=== PATIENT | female | born 1975 | race Two or more races ===

== ENCOUNTER → 2024-03-28 10:29 | Outpatient (REF) | payer OTHER, SELFPAY ==
[2024-03-28 16:33] LABS: Mumps Virus IgG Positive; Rubeola (Measles) IgG Positive; Varicella Zoster IgG (VZV) Positive
[2024-03-28 20:23] LABS: Rubella Positive
[2024-03-28 23:12] LABS: Hepatitis B Surface Antibody Indeterminate
== END ==
LOC: OHS 10:29
PROVIDERS: ATTENDING PHYSICIAN Nurse Practitioner
DX: Z23 Encounter for immunization (principal)
CPT/HCPCS: 36415; 86706; 86735; 86762; 86765; 86787

== ENCOUNTER → 2024-06-19 14:08 | Outpatient (REF) | payer OTHER, SELFPAY ==
[2024-06-20 22:40] LABS: Hepatitis B Surface Antibody Positive
== END ==
LOC: OHS 14:08
PROVIDERS: ATTENDING PHYSICIAN Nurse Practitioner Family
DX: Z23 Encounter for immunization (principal)
CPT/HCPCS: 36415; 86706

== ENCOUNTER → 2024-09-25 19:23 | Outpatient (REF) | payer OTHER, SELFPAY | LOC: WDC 19:23 | PROVIDERS: ATTENDING PHYSICIAN Obstetrics & Gynecology; FAMILY PHYSICIAN Family Medicine | DX: Z12.31 Encounter for screening mammogram for malignant neoplasm of breast (principal) | CPT/HCPCS: 77063; 77067 ==

== ENCOUNTER → 2024-10-01 13:56 | Outpatient (REF) | payer OTHER, SELFPAY | LOC: WDC 13:56 | PROVIDERS: ATTENDING PHYSICIAN Obstetrics & Gynecology; FAMILY PHYSICIAN Family Medicine | DX: R92.8 Other abnormal and inconclusive findings on diagnostic imaging of breast (principal) | CPT/HCPCS: 76642 ==

== ENCOUNTER → 2025-03-19 09:59 | Outpatient (REF) | payer BC, SELFPAY | LOC: WDC 09:59 | PROVIDERS: ATTENDING PHYSICIAN Obstetrics & Gynecology; FAMILY PHYSICIAN Family Medicine | DX: R92.333 Mammographic heterogeneous density, bilateral breasts (principal) | CPT/HCPCS: 76641 ==